=== PATIENT | male | born 1960 | race Caucasian/White ===

== ENCOUNTER 2018-05-22 12:28 | Inpatient (IN) | payer MEDICAID ==
[~2018-05-22] VITALS: Ht 190.5 cm; Wt 90.9 kg
[2018-05-22 13:28] LABS: PLATELET COUNT 192 x10^3mcL (130-400); RED CELL DISTRIBUTION WIDTH 12.7 % (11.5-14.5)
[2018-05-22 13:38] LABS: CALCIUM 9.1 mg/dL (8.5-10.1); CARBON DIOXIDE 31.1 mmol/L (21-32); CHLORIDE SERUM 101 mmol/L (98-107); GFR1 > 60 mL/min; GLUCOSE SERUM 319 mg/dL (74-106); POTASSIUM SERUM 4.1 mmol/L (3.5-5.1); SODIUM SERUM 137 mmol/L (136-145)
[2018-05-22 13:43] LABS: ALBUMIN 3.4 g/dL (3.4-5.0); ALKALINE PHOSPHATASE 86 U/L (46-116); ALT/SGPT 34 U/L (16-63); AST/SGOT 10 U/L (15-37); BILIRUBIN TOTAL 0.93 mg/dL (0.20-1.00); TOTAL PROTEIN, SERUM 7.8 g/dL (6.4-8.2)
[2018-05-22 14:06] LABS: BAND NEUTROPHIL 10 % (0-10); BASOPHIL 0 % (0-2); MONOCYTE 9 % (0-7); SEGMENTED NEUTROPHILS 66 % (37-75)
[2018-05-22 14:07] LABS: PLATELET MORPHOLOGY LARGE PLATELET SEEN; rbc morphology (normal/abnorm) ABNORMAL (NORMAL); tear drop cell (dacryocyte) 1+
[2018-05-22] MEDS ORDERED: METFORMIN HYDR500 M1 PO (15:32)
[2018-05-22] MEDS ORDERED: LANTUS SOLOS100 U/M1 (15:32)
[2018-05-22 15:57] LABS: CHOLESTEROL/HDL RATIO 4.2; MAGNESIUM 1.7 mg/dL (1.8-2.4); PHOSPHOROUS 3.8 mg/dL (2.5-4.9)
[2018-05-22 17:49] VITALS: BP 131/82
[2018-05-22 22:08] VITALS: BP 140/62
[2018-05-23 05:28] VITALS: BP 130/70
[2018-05-23 06:21] LABS: microscopic required? NO
[2018-05-23 06:43] LABS: CALCIUM 8.3 mg/dL (8.5-10.1); CARBON DIOXIDE 26.8 mmol/L (21-32); CHLORIDE SERUM 105 mmol/L (98-107); CREATININE SERUM 0.9 mg/dL (0.7-1.3); GFR1 > 60 mL/min; GLUCOSE SERUM 178 mg/dL (74-106); MAGNESIUM 1.7 mg/dL (1.8-2.4); PHOSPHOROUS 3.7 mg/dL (2.5-4.9); POTASSIUM SERUM 4.4 mmol/L (3.5-5.1); SODIUM SERUM 137 mmol/L (136-145)
[2018-05-23 06:48] LABS: BASOPHIL % 0.4 % (0-2); PLATELET COUNT 163 x10^3mcL (130-400); RED CELL DISTRIBUTION WIDTH 12.8 % (11.5-14.5)
[2018-05-23 08:34] VITALS: BP 143/79
[2018-05-23 09:09] LABS: UA SPECIFIC GRAVITY >=1.030 (1.005-1.035); urine erythrocyte NEGATIVE (NEGATIVE)
[2018-05-23 09:17] LABS: AMPHETAMINE QUAL UR NONE DETECTED (See below)
[2018-05-23 12:52] VITALS: BP 130/70
[2018-05-23 16:01] VITALS: BP 129/78
[2018-05-23 20:52] VITALS: BP 119/73
[2018-05-24 05:37] VITALS: BP 121/75
[2018-05-24 07:06] LABS: CALCIUM 8.5 mg/dL (8.5-10.1); CARBON DIOXIDE 27.6 mmol/L (21-32); CHLORIDE SERUM 101 mmol/L (98-107); GFR1 > 60 mL/min; GLUCOSE SERUM 222 mg/dL (74-106); MAGNESIUM 1.8 mg/dL (1.8-2.4); SODIUM SERUM 138 mmol/L (136-145)
[2018-05-24 07:39] LABS: BASOPHIL % 0.3 % (0-2); PLATELET COUNT 169 x10^3mcL (130-400); RED CELL DISTRIBUTION WIDTH 12.9 % (11.5-14.5)
[2018-05-24 08:27] VITALS: BP 128/77
[2018-05-24] MEDS ORDERED: GLIPIZIDE10 M2 PO (08:33)
[2018-05-24 16:22] VITALS: BP 129/78
[2018-05-24 21:47] VITALS: BP 129/81
[2018-05-25 05:27] VITALS: BP 119/73
[2018-05-25 06:18] LABS: BASOPHIL % 0.8 % (0-2); PLATELET COUNT 191 x10^3mcL (130-400); RED CELL DISTRIBUTION WIDTH 12.4 % (11.5-14.5)
[2018-05-25 06:24] LABS: CALCIUM 8.5 mg/dL (8.5-10.1); CARBON DIOXIDE 27.1 mmol/L (21-32); CHLORIDE SERUM 102 mmol/L (98-107); GFR1 > 60 mL/min; GLUCOSE SERUM 258 mg/dL (74-106); POTASSIUM SERUM 3.9 mmol/L (3.5-5.1); SODIUM SERUM 135 mmol/L (136-145)
[2018-05-25 10:50] VITALS: BP 120/78
[2018-05-25 19:08] VITALS: BP 125/77
[2018-05-25 20:58] VITALS: BP 120/72
[2018-05-26 05:49] VITALS: BP 107/68
[2018-05-26 07:30] LABS: BASOPHIL % 0.8 % (0-2); PLATELET COUNT 210 x10^3mcL (130-400); RED CELL DISTRIBUTION WIDTH 12.5 % (11.5-14.5)
[2018-05-26 07:42] LABS: CALCIUM 8.8 mg/dL (8.5-10.1); CARBON DIOXIDE 29.1 mmol/L (21-32); CHLORIDE SERUM 104 mmol/L (98-107); CREATININE SERUM 0.9 mg/dL (0.7-1.3); GFR1 > 60 mL/min; GLUCOSE SERUM 215 mg/dL (74-106); POTASSIUM SERUM 4.1 mmol/L (3.5-5.1); SODIUM SERUM 141 mmol/L (136-145)
[2018-05-26 09:19] VITALS: BP 116/62
[2018-05-26 17:29] VITALS: BP 127/80
[2018-05-26 21:51] VITALS: BP 128/78
[2018-05-27 06:17] VITALS: BP 121/60
[2018-05-27 07:24] LABS: BASOPHIL % 0.6 % (0-2); PLATELET COUNT 225 x10^3mcL (130-400); RED CELL DISTRIBUTION WIDTH 12.4 % (11.5-14.5)
[2018-05-27 07:39] LABS: CALCIUM 8.9 mg/dL (8.5-10.1); CARBON DIOXIDE 27.2 mmol/L (21-32); CHLORIDE SERUM 104 mmol/L (98-107); CREATININE SERUM 0.9 mg/dL (0.7-1.3); GFR1 > 60 mL/min; GLUCOSE SERUM 222 mg/dL (74-106); POTASSIUM SERUM 4.2 mmol/L (3.5-5.1); SODIUM SERUM 139 mmol/L (136-145)
[2018-05-27 08:51] VITALS: BP 143/84
[2018-05-27 16:48] VITALS: BP 125/68
[2018-05-27 21:59] VITALS: BP 118/65
[2018-05-28 05:16] VITALS: BP 106/59
[2018-05-28 08:14] VITALS: Ht 190.5 cm; Wt 90.9 kg
[2018-05-28] MEDS ORDERED: METFORMIN HCL1000 MG PO (09:38)
[2018-05-28] MEDS ORDERED: CLEOCIN HCL150 MG PO (09:39)
[2018-05-28 09:42] VITALS: BP 127/77
[2018-05-28] MEDS ORDERED: BD LACTINEX1.4 MG PO (09:42)
[2018-05-28 10:38] VITALS: BP 127/77
== END 2018-05-28 15:59 | disposition home or self-care (01) | DRG 383 ==
LOC: ED 12:28 → MU 14:40
PROVIDERS: Family Medicine; Physician Assistant
PROC: 0J993ZZ Drainage of Buttock Subcutaneous Tissue and Fascia, Percutaneous Approach (ICD-10-PCS; principal; 2018-05-22)
DX: L02.31 Cutaneous abscess of buttock (principal); E11.65 Type 2 diabetes mellitus with hyperglycemia; E83.42 Hypomagnesemia; R59.1 Generalized enlarged lymph nodes; A49.02 Methicillin resistant Staphylococcus aureus infection, unspecified site; Z79.4 Long term (current) use of insulin; Z68.25 Body mass index [BMI] 25.0-25.9, adult; Z79.84 Long term (current) use of oral hypoglycemic drugs
CPT/HCPCS: 82962; 90658; 90714; 90732; J2001; J2405; J2543; J3010; J3370; J3475; J3490; J7030; J7040; J7042; Q0092; Q0163

== ENCOUNTER 2018-09-14 11:38 | Emergency (ER) | payer SELFPAY ==
[~2018-09-14] VITALS: Ht 188 cm; Wt 86.7 kg
[~2018-09-14 11:38] MED LIST: BD LACTINEX1.4 MG PO; CLEOCIN HCL150 MG PO; GLIPIZIDE10 M2 PO; LANTUS SOLOS100 U/M1; METFORMIN HCL1000 MG PO; METFORMIN HYDR500 M1 PO
[2018-09-14 11:49] VITALS: Ht 188 cm; Wt 86.7 kg
[2018-09-14 16:01] VITALS: BP 146/81
== END 2018-09-14 16:01 | disposition home or self-care (01) ==
LOC: ED 11:38
DX: J11.1 Influenza due to unidentified influenza virus with other respiratory manifestations (principal); J18.9 Pneumonia, unspecified organism; E11.9 Type 2 diabetes mellitus without complications

== ENCOUNTER 2018-09-18 09:08 | Emergency (ER) | payer SELFPAY ==
[~2018-09-18] VITALS: Ht 190.5 cm; Wt 84.4 kg
[2018-09-18 09:11] VITALS: BP 133/82; Ht 190.5 cm; Wt 84.4 kg
== END 2018-09-18 10:25 | disposition home or self-care (01) ==
LOC: ED 09:08
DX: J06.9 Acute upper respiratory infection, unspecified (principal); E11.9 Type 2 diabetes mellitus without complications